=== PATIENT | male | born 1945 | race Caucasian/White ===

== ENCOUNTER → 2018-08-15 | Outpatient (CLI) | payer MEDICARE ==
--- NOTE | 2018-08-15 14:33 | CT ---
EXAMINATION TYPE: CT brain wo/w con DATE OF EXAM: 08/15/2018 COMPARISON: NONE HISTORY: Visual field defects CT DLP: [id number] mGycm Automated Exposure Control for Dose Reduction was Utilized. TECHNIQUE: CT scan of the head is performed with IV contrast.,CT scan of the head is performed withou t and with without and with IV Contrast, patient injected with 100 mL of Isovue 300. FINDINGS: There is encephalomalacia in the left occipital lobe. This correlates with the patient's provided history of visual deficits. Other scattered areas of hypoattenuation are seen within the sub cortical and periventricular white matter. Old lacunar injury seen of the right external capsule abut ting the lentiform nucleus that is CSF attenuated. Additional lacunar injury seen of the left caudate head. There is symmetric prominence of the peripheral sulci and ventricular system compatible with a ge-related volume loss. No suspicious extra-axial fluid collection is seen. Dystrophic calcifications of the left basal ganglia are noted. Noncontrast images show no acute intracranial hemorrhage or mid line shift. Postcontrast images show no suspicious enhancing intraparenchymal mass. The globes are intact. Lenses are symmetric. Extraocular muscles are also symmetric. No enlargement of the superior ophthalmic vei ns. No enhancing intracranial mass is identified. There is moderate mucosal thickening of the right m axillary sinus and minimal mucosal thickening of the ethmoid sinuses. Remaining paranasal sinuses and mastoid air cells are well aerated. Calvarium appears intact. IMPRESSION: 1. 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 2. Cerebral atrophy and mild burden nonspecific with air change, likely on the basis of chronic micro angiopathy. 3. Lacunar injuries of the right external capsule extending into the right lentiform nucleus and left caudate head.
== END | disposition home or self-care (01) ==
LOC: RADCTMAIN 12:27
PROVIDERS: ATTEND Ophthalmology
DX: I69.398 Other sequelae of cerebral infarction (principal); G93.89 Other specified disorders of brain; G31.9 Degenerative disease of nervous system, unspecified; Z88.2 Allergy status to sulfonamides
CPT/HCPCS: 82565; 84520; 70470; 36415; Q9967

== ENCOUNTER 2020-06-28 15:04 | Emergency (ER) | payer MEDICARE ==
[2020-06-28] MEDS ORDERED: ceFAZolin 1,000 MG VIAL (IM USE) IM STA ×2 (15:15→15:27)
[2020-06-28] MEDS ORDERED: DIPH,PERTUS(ACELL)TETVAC-LF 0.5 ML VIAL IM ONE (15:16)
[2020-06-28] MEDS ORDERED: LIDOCAINE 1% INJ 10MG/ML (20 ML MDV) SQ ONE (15:16)
[2020-06-28] MEDS ORDERED: traMADol 50 MG STARTER PACK 3 TAB BTL PO STA (15:17)
[2020-06-28 15:22] VITALS: RESP 18; TEMP 97.7
--- NOTE | 2020-06-28 15:57 | XR ---
EXAMINATION TYPE: XR hand complete LT DATE OF EXAM: 06/28/2020 CLINICAL HISTORY: Laceration injury with pain worse over second and third fingers. TECHNIQUE: Frontal, lateral and oblique images of the left hand are obtained. COMPARISON: None. FINDINGS: Osseous structures are demineralized. There is acute comminuted minimally displaced fractur e with adjacent soft tissue swelling and punctate densities possible soft tissue foreign body through the proximal to mid shaft ulnar and dorsal aspect of the second distal phalanx. No additional fractu re clearly seen. Mild to moderate narrowing throughout the PIP and DIP joints is present. Incidental metallic ring overlies the distal diaphysis fourth proximal phalanx. IMPRESSION: There is comminuted minimally displaced fracture involving the ulnar dorsal aspect proxi mal to mid diaphysis fourth distal phalanx with possible soft tissue foreign body.
[2020-06-28] MEDS ORDERED: BACITRACIN OINT 1 EACH PACKET TOPICAL ONE (16:52)
--- NOTE | 2020-06-28 17:12 | ED ---
Wound/Laceration HPI - General Chief Complaint: Wound/Laceration Stated Complaint: Hand Lac Time Seen by Provider: 06/28/20 15:12 Source: patient Mode of arrival: ambulatory Limitations: no limitations - History of Present Illness Initial Comments: 75yo male presenting today for cc of right hand lacerations. Patient states he cut the tips of digits 2 and 3 on his right hand using a circular saw. Patient states he missed and cut his fingers that this was not intentional. Patient states he has no decreased range of motion or sensation of the fingers he states he does have pain at the site of lacerations. Patient was able to control the bleeding with pressure presents emergency department for further evaluation. Patient is unsure of last tetanus. Patient has no additional complaints he denies any other areas of injury review systems negative upon arrival patient appears well and nontoxic in no acute distress. - Related Data Home Medications Medication Instructions Recorded Confirmed Aspirin [Adult Low Dose Aspirin EC] 81 mg PO Q2D 11/06/18 11/06/18 Dipyridamole-Aspirin 200-25 mg 1 each PO BID 11/06/18 11/06/18 [Aggrenox] Enalapril [Vasotec] 20 mg PO BID 11/06/18 11/06/18 Famotidine 20 mg PO BID PRN 11/06/18 11/06/18 Insulin Aspart Protam & Aspart 7 - 8 unit SQ TID PRN 11/06/18 11/06/18 [NovoLOG MIX 70-30 Flexpen] Insulin Glargine,Hum.rec.anlog 11 units SQ HS 11/06/18 11/06/18 [T[place]ora Solostar] Latanoprost/Pf [Latanoprost 0.005% 1 drop BOTH EYES HS 11/06/18 11/06/18 Eye Drop] Metoprolol Tartrate [Lopressor] 25 mg PO QAM 11/06/18 11/06/18 Nitroglycerin 0.4 mg SL DIRECTED PRN 11/06/18 11/06/18 Simvastatin [Zocor] 20 mg PO DAILY 11/06/18 11/06/18 Vit C/E/Zn/Coppr/Lutein/Zeaxan 1 each PO BID 11/06/18 11/06/18 [Preservision Areds 2 Softgel] amLODIPine [Norvasc] 5 mg PO BID 11/06/18 11/06/18 hydroCHLOROthiazide 25 mg PO QAM 11/06/18 11/06/18 metFORMIN HCL 1,000 mg PO BID 11/06/18 11/06/18 Previous Rx's Medication Instructions Recorded Cephalexin [Keflex] 500 mg PO Q6HR 7 Days #28 cap 06/28/20 Allergies Allergy/AdvReac Type Severity Reaction Status Date / Time Sulfa (Sulfonamide Allergy Rash/Hives Verified 06/28/20 15:18 Antibiotics) Review of Systems ROS Statement: Those systems with pertinent positive or pertinent negative responses have been documented in the HPI. ROS Other: All systems not noted in ROS Statement are negative. 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 Melamoma on back. Hard of hearing. Hx Pneumonia yrs ago. Last Myocardial Infarction Date:: 2009 History of Any Multi-Drug Resistant Organisms: None Reported Past Surgical History: Coronary Bypass/CABG Additional Past Surgical History / Comment(s): Nose surgery, broken foot surgery, melanoma removed from back. Past Anesthesia/Blood Transfusion Reactions: No Reported Reaction Past Psychological History: No Psychological Hx Reported Smoking Status: Never smoker Past Alcohol Use History: Occasional Past Drug Use History: None Reported - Past Family History Sister(s) Family Medical History: Cancer Brother(s) Family Medical History: Cancer General Exam - General Exam Comments Initial Comments: General: The patient is awake and alert, in no distress, and does not appear acutely ill. Eye: Pupils are equal, round and reactive to light, extra-ocular movements are intact. No nystagmus. There is normal conjunctiva bilaterally. No signs of icterus. Ears, nose, mouth and throat: There are moist mucous membranes and no oral lesions. Neck: The neck is supple, there is no tenderness or JVD. Cardiovascular: There is a regular rate and rhythm. No murmur, rub or gallop is appreciated. Respiratory: Lungs are clear to auscultation, respirations are non-labored, breath sounds are equal. No wheezes, stridor, rales, or rhonchi. Musculoskeletal: Normal ROM, no tenderness. Strength 5/5 at the MCP DIP and PIP joints with full range of motion at the joints. Sensation intact. Radial pulses equal bilaterally 2+. Apley refill less than 3 seconds sensation proximal distal to areas of injury Neurological: A&O x 3. CN II-XII intact, There are no obvious motor or sensory deficits. Coordination appears grossly intact. Speech is normal. Skin: Skin is warm and dry and no rashes. Very irregular lesions on the second and third digit on the radial aspect just distal to the DIP joint. the index finger has finger nail involvement both lacerations roughly 1 cm irregular with avulsions of skin significant swelling exposure of adipose no exposure of bone no bony fragments identified no obvious foreign body after exploration Psychiatric: Cooperative, appropriate mood & affect, normal judgment. Limitations: no limitations Course Vital Signs 06/28/20 06/28/20 15:18 17:25 Temperature 97.7 F Pulse Rate 51 L 50 L Respiratory 18 18 Rate Blood Pressure 177/96 173/83 O2 Sat by Pulse 97 98 Oximetry Procedures - Laceration Laceration #1 Consent Obtained: verbal consent Indication: laceration Site: lower extremity, other (finger 2nd right hand) Size (cm): 1 Description: avulsion, irregular Depth: simple, single layer Anesthetic Used: lidocaine 1% Anesthesia Technique: nerve block Amount (mls): 1 Pre-repair: wound explored, irrigated extensively, deep structures intact Type of Sutures: nylon Size of Sutures: 5-0 Number of Sutures: 3 Technique: simple, interrupted Patient Tolerated Procedure: well, no complications Laceration #2 Consent Obtained: verbal consent Indication: laceration Site: other (finger right hand 3rd) Size (cm): 1 Description: avulsion, irregular Anesthetic Used: lidocaine 1% Anesthesia Technique: nerve block Amount (mls): 1 Pre-repair: wound explored, irrigated extensively, deep structures intact Type of Sutures: nylon Size of Sutures: 5-0 Number of Sutures: 4 Technique: simple, interrupted Patient Tolerated Procedure: well, no complications Medical Decision Making - Medical Decision Making 76 mL presenting for second and third digit lacerations. X-ray revealed distal phalanx fractures of second third digits. Comminuted. Consistent with circular sort injury. Patient lacerations were repaired to the best of ability there is significant avulsion of skin as well as swelling. There is no exposure of bone patient tolerated procedure well there is extensive irrigation prior to closure (1L), she received cefazolin, tetanus was updated. Patient was discharged with Keflex and instruction to follow-up with orthopedic surgery at this time there is no evidence suggestive of tendon injury. Case was discussed with attending provider Dr. Garrett who was agreeable to care plan and discharge. Disposition Clinical Impression: Fracture of distal phalanx of index finger, Fracture of distal phalanx of middle finger, Open fracture, Laceration of index finger, Laceration of middle finger, Contact with powered saw as cause of accidental injury Disposition: HOME SELF-CARE Condition: Good Instructions (If sedation given, give patient instructions): Care For Your Stitches (ED), Laceration (ED) Additional Instructions: Please use medication as discussed. Please follow-up with orthopedic surgery in the next 2-3 days. Suture removal in 7-10 days. Please return to emergency room if the symptoms increase or worsen or for any other concerns. Prescriptions: Cephalexin [Keflex] 500 mg PO Q6HR 7 Days #28 cap Is patient prescribed a controlled substance at d/c from ED?: No Referrals: Juanito Lawton MD [Primary Care Provider] - 1-2 days Richy Mercado MD [STAFF PHYSICIAN] - 1-2 days Time of Disposition: 17:12
[2020-06-28 17:31] VITALS: BP 173/83; PULSE 50
[2020-06-29 14:04] LABS: Glucose,Whole Blood 104 mg/dL (75-99)
== END 2020-06-28 17:25 | disposition home or self-care (01) ==
LOC: EC 15:04
DX: S62.630B Displaced fracture of distal phalanx of right index finger, initial encounter for open fracture (principal); S62.632B Displaced fracture of distal phalanx of right middle finger, initial encounter for open fracture; I10 Essential (primary) hypertension; E11.9 Type 2 diabetes mellitus without complications; K21.9 Gastro-esophageal reflux disease without esophagitis; E78.5 Hyperlipidemia, unspecified; H57.9 Unspecified disorder of eye and adnexa; H91.90 Unspecified hearing loss, unspecified ear; I25.2 Old myocardial infarction; Z23 Encounter for immunization; Z79.4 Long term (current) use of insulin; Z79.82 Long term (current) use of aspirin; Z79.84 Long term (current) use of oral hypoglycemic drugs; Z79.899 Other long term (current) drug therapy; Z88.2 Allergy status to sulfonamides; Z86.73 Personal history of transient ischemic attack (TIA), and cerebral infarction without residual deficits; Z85.820 Personal history of malignant melanoma of skin; W31.2XXA Contact with powered woodworking and forming machines, initial encounter
CPT/HCPCS: 99283; 96365; 90471; 73130; 90715; 12001; J0690; J2001; 36415

== ENCOUNTER 2021-06-09 05:58 | Day surgery (SDC) | payer MEDICARE ==
[2021-06-07 16:10] VITALS: BMI 25.5
[2021-06-09] MEDS ORDERED: ALPRAZolam 0.5 MG TAB PO PRN (06:11)
[2021-06-09] MEDS ORDERED: HEPARIN SODIUM,PORCINE 10,000 UNIT in SODIUM CHLORIDE 0.9% 1,000 ML IRRIGATION PRN (06:11)
[2021-06-09] MEDS ORDERED: HEPARIN SODIUM,PORCINE 2,500 UNIT in SODIUM CHLORIDE 0.9% 250 ML IRRIGATION PRN (06:11)
[2021-06-09] MEDS ORDERED: NITROGLYCERIN SL TABS 0.4 MG TAB SUBLINGUAL PRN (06:11)
[2021-06-09] MEDS ORDERED: ALPRAZolam 0.25 MG TAB PO PRN (06:11)
[2021-06-09] MEDS ORDERED: ASPIRIN 325 MG TAB PO STA (06:11)
[2021-06-09] MEDS ORDERED: SODIUM CHLORIDE 0.9% 1,000 ML in EMPTY BAG 1 BAG IV ONE (06:11)
[2021-06-09 06:33] LABS: Glucose,Whole Blood 165 mg/dL (75-99)
[2021-06-09 06:46] LABS: Basophils % (A) 0 %; Eosinophils # (A) 0.2 k/uL (0-0.7); Eosinophils % (A) 2 %; HCT 37.1 % (39.0-53.0); HGB 12.6 gm/dL (13.0-17.5); Lymphocytes % (A) 22 %; MCH 33.4 pg (25.0-35.0); Mean Platelet Volume 7.6; Monocytes # (A) 0.7 k/uL (0-1.0); Monocytes % (A) 7 %; Neutrophils # (A) 6.2 k/uL (1.3-7.7); Neutrophils % (A) 67 %; Platelet Count 232 k/uL (150-450); RBC 3.79 m/uL (4.30-5.90); RDW 12.5 % (11.5-15.5); WBC 9.3 k/uL (3.8-10.6)
[2021-06-09 06:55] LABS: Calcium 9.3 mg/dL (8.4-10.2); Potassium 4.6 mmol/L (3.5-5.1)
[2021-06-09 07:06] VITALS: RESP 16; TEMP 98.5
[2021-06-09] MEDS ORDERED: LIDOCAINE 1% INJ 10MG/ML (20 ML MDV) ONE (07:19)
[2021-06-09] MEDS ORDERED: HEPARIN SODIUM 1,000 UN/ML (10ML VL) ONE (07:26)
[2021-06-09] MEDS ORDERED: fentaNYL (PF) 50 MCG/ML 2 ML AMP ONE (07:26)
[2021-06-09] MEDS ORDERED: fentaNYL (PF) 50 MCG/ML 2 ML AMP IV ONE (07:42)
[2021-06-09] MEDS ORDERED: LIDOCAINE 1% INJ 10MG/ML (20 ML MDV) SQ ONE (07:46)
[2021-06-09] MEDS ORDERED: IOPAMIDOL-370 125ML BTL INJ ONE (08:07)
[2021-06-09] MEDS ORDERED: RX INFO: IV CONTRAST WAS GIVEN 1 EACH MISC MISCELLANE PRN (08:49)
[2021-06-09] MEDS ORDERED: INSULIN ASPART PROTAM SQ PRN (08:50)
[2021-06-09] MEDS ORDERED: ASPART SQ PRN (08:50)
[2021-06-09] MEDS ORDERED: [UNRECOGNIZED DRUG - OTHER] SQ PRN (08:50)
[2021-06-09] MEDS ORDERED: NON FORMULARY DRUG (Simvastatin 20 MG Tab) PO SCH (09:00)
[2021-06-09] MEDS ORDERED: DIPYRIDAMOLE-ASPIRIN 200-25 MG 1 EACH CPMP.12HR PO SCH (09:00)
[2021-06-09] MEDS ORDERED: NON FORMULARY DRUG (Aspirin [Adult Low Dose Aspirin Ec] 81 MG Tablet.Dr) PO SCH (09:00)
[2021-06-09] MEDS ORDERED: METOPROLOL TARTRATE 25 MG TAB PO SCH (09:00)
[2021-06-09] MEDS ORDERED: amLODIPine 5 MG TAB PO SCH (09:00)
[2021-06-09] MEDS ORDERED: NON FORMULARY DRUG (Enalapril 20 MG Tab) PO SCH (09:00)
[2021-06-09] MEDS ORDERED: FAMOTIDINE 20 MG TAB PO SCH (09:00)
[2021-06-09] MEDS ORDERED: hydroCHLOROthiazide 25 MG TAB PO SCH (09:00)
[2021-06-09] MEDS ORDERED: SODIUM CHLORIDE 0.9% 1,000 ML IV SCH (09:00)
--- NOTE | 2021-06-09 13:17 | CC ---
CARDIAC CATHETERIZATION REPORT Mr. Feliciano is a 75-year-old male with known history of coronary artery disease status post coronary artery bypass grafting, history of hypertension, hyperlipidemia, and diabetes, who has been complaining of progressive fatigue, underwent a myocardial perfusion imaging that revealed anterolateral wall reversible defect. In view of that, recommendation regarding cardiac catheterization, the procedure as well as the risks and the complications were discussed with the patient who is in full understanding and agreement. PROCEDURE: Patient was brought to the laborer cutting tool in a fasting state after receiving fentanyl and Benadryl and achieving moderate conscious sedated state. Using Xylocaine anesthesia and Seldinger technique a 6-Sammarinese sheath was introduced in the right femoral artery. Selective right and left coronary angiography performed using 6-Sammarinese, 4 bend right and left Laquita catheter. Multiple views of the coronary arteries including hemiaxial views were obtained. Following that, the 6-Sammarinese right Laquita was used to cannulate the WEAVER to LAD and images of the grafts were obtained. Following that, 6-Sammarinese tight pigtail catheter was advanced in the ascending aorta and [facility] view of the ascending aorta was performed. Following that, a 6-Sammarinese size 3.5 Laquita catheter was used to cannulate the saphenous vein graft to the right coronary artery and images of the grafts were obtained. The 6-Sammarinese LCB catheter was used to cannulate the saphenous vein graft to the obtuse marginal branch and saphenous vein graft to the diag and subsequently multipurpose B2 was used to cannulate the saphenous vein graft to the diagonal 1 and 2. Images of the grafts were obtained. Following that the catheter and sheaths were removed. Hemostasis was obtained with deployment of an Angio-Seal. There was no immediate complication. Patient was returned to his room in stable condition. Of note, the right Laquita was used to cross the aortic valve and left ventricular end- diastolic pressure was calculated. FINDINGS: LEFT MAIN: This vessel has a 99% stenosis distally. LEFT ANTERIOR DESCENDING ARTERY: This vessel is totally occluded in the proximal segment with no antegrade flow. LEFT CIRCUMFLEX: This vessel is totally occluded proximally with no significant antegrade flow. RIGHT CORONARY ARTERY: Right coronary artery, this vessel is totally occluded in the proximal segment with no significant antegrade flow. WEAVER to the LAD: The distal anastomotic site is patent. The flow into the LAD is brisk. There is a 99% stenosis in the LAD at the apex. There is retrograde flow filling at diagonal branch. Saphenous vein graft to the obtuse marginal branch: The proximal and distal anastomotic sites are patent. There is brisk flow into the obtuse marginal branch. There is retrograde flow through the AV groove left circumflex feeding to the proximal obtuse marginal branch. There is diffuse disease in the AV groove left circumflex. Saphenous vein graft to the right coronary artery: The proximal distal anastomotic sites are patent. The flow into the RCA is brisk. The PLV has diffuse intimal disease. The rest of the vessel has no high-grade stenosis. Saphenous vein graft to the first diagonal branch: This graft is totally occluded proximally. Saphenous vein graft to the second diagonal branch: This graft is patent. There is a 50% stenosis in the body of the graft, 50 to 60%. The diagonal branch is small in caliber. AORTOGRAM: Aortogram was performed in the [facility] view and revealed a normal appearance of the ascending aorta with no significant aortic regurgitation. LEFT VENTRICULOGRAM: Was not performed. HEMODYNAMICS: There was no gradient across the aortic valve. The left ventricle end-diastolic pressure was 10-14 mmHg. CONCLUSION: 1. Severe triple-vessel coronary artery disease. 2. Patent WEAVER to LAD. 3. Patent saphenous vein graft to the RCA. 4. Patent saphenous vein graft to the obtuse marginal branch. 5. Occluded saphenous vein graft to the diagonal branch 1. 6. Occluded saphenous vein graft to the diagonal branch 2 with moderate disease in the body of the graft and small distal vessel. 7. Normal appearance of the ascending aorta. RECOMMENDATIONS: In view of findings and anatomy, recommend continued medical therapy with aggressive coronary risk modifications that have been initiated. Those findings and recommendations were discussed with the patient and his family and they are in full understanding and agreement. Duration of sedation is 48 minutes. MMODL / IJN: [id number] /
[2021-06-09 17:54] VITALS: BP 146/72; PULSE 52
[2021-06-09] MEDS ORDERED: NON FORMULARY DRUG (Latanoprost/Pf [Latanoprost 0.005% Eye Drop] 7.5 ML Drops) BOTH EYES SCH (21:00)
[2021-06-09] MEDS ORDERED: NON FORMULARY DRUG (Insulin Glargine,Hum.Rec.Anlog [Toujeo Solostar] 300 UNIT/ML Insuln.Pe SQ SCH (21:00)
== END 2021-06-09 16:02 | disposition home or self-care (01) ==
LOC: CATHCVL 05:58
PROVIDERS: ATTEND Internal Medicine Interventional Cardiology
DX: I25.10 Atherosclerotic heart disease of native coronary artery without angina pectoris (principal); I25.82 Chronic total occlusion of coronary artery; I25.810 Atherosclerosis of coronary artery bypass graft(s) without angina pectoris; E78.00 Pure hypercholesterolemia, unspecified; E11.9 Type 2 diabetes mellitus without complications; I12.9 Hypertensive chronic kidney disease with stage 1 through stage 4 chronic kidney disease, or unspecified chronic kidney disease; E11.22 Type 2 diabetes mellitus with diabetic chronic kidney disease; N18.9 Chronic kidney disease, unspecified; E78.2 Mixed hyperlipidemia; Z98.890 Other specified postprocedural states; H26.9 Unspecified cataract; Z86.73 Personal history of transient ischemic attack (TIA), and cerebral infarction without residual deficits; Z87.891 Personal history of nicotine dependence; Z79.899 Other long term (current) drug therapy; Z79.02 Long term (current) use of antithrombotics/antiplatelets; Z79.82 Long term (current) use of aspirin; Z79.4 Long term (current) use of insulin
CPT/HCPCS: 93459; 93567; 80048; 85025; C1769 ×2; C1760; C1894; J2001; J3010; Q9967

== ENCOUNTER 2022-01-17 08:30 | Day surgery (SDC) | payer MEDICARE ==
[2022-01-15 15:13] VITALS: BMI 25.5
[~2022-01-17 08:30] MED LIST: LACTATED RINGERS 1,000 ML IV SCH; LIDOCAINE 1% (10MG/ML) FOR IV START INTRADERMA PRN; MOXIFLOXACIN HCL 0.5% DROPS 3 ML BTL OP PRN; TETRACAINE 0.5% OPHTH (PF) DROPS 4 ML BTL OP PRN; TIMOLOL 0.5% OPHTH DROPS 5 ML BTL OP PRN
[2022-01-17] MEDS: CYCLOPENTOLATE 1% OPHTH SOLN 2 ML BTL OP PRN ×3 (09:55→10:07)
[2022-01-17] MEDS: PHENYLEPHRINE 2.5% OPHTH DRP 2ML OP PRN ×3 (09:58→10:10)
[2022-01-17 10:03] VITALS: TEMP 97
[2022-01-17 10:18] LABS: Glucose,Whole Blood 209 mg/dL (75-99)
[2022-01-17] MEDS ORDERED: fentaNYL (PF) 50 MCG/ML 2 ML AMP ONE (10:26)
[2022-01-17] MEDS ORDERED: MIDAZOLAM 2 MG/2 ML VIAL ONE (10:26)
[2022-01-17] MEDS ORDERED: BALANCED SALT IRRIG SOLN COMB2 15 ML IRRIG.SOLN INTRAOCULA ONE (10:32)
[2022-01-17] MEDS ORDERED: TRYPAN BLUE 0.06% SYRINGE 0.5 ML SYRINGE INTRAOCULA ONE (10:33)
[2022-01-17] MEDS ORDERED: DUOVISC KIT (GREEN BOX) INTRAOCULA ONE (10:33)
[2022-01-17] MEDS ORDERED: LIDOCAINE 1% (PF) 10MG/ML VIAL MISCELLANE ONE (10:33)
[2022-01-17] MEDS ORDERED: EPINEPHrine (PF) 0.3 ML in BALANCED SALT IRRIG SOLN COMB2 500 ML IRRIGATION ONE (10:34)
--- NOTE | 2022-01-17 11:11 | P.OP ---
Date of Procedure: 01/17/22 Preoperative Diagnosis: NS & CS & POAG ,moderate Postoperative Diagnosis: same Procedure(s) Performed: PIOL & goniotomy OS Implants: MX60E 21.50 Anesthesia: MAC Surgeon: Silas Stevens Pathology: none sent Condition: stable Disposition: same day Indications for Procedure: blurry vision and glaucoma control Operative Findings: no complications
[2022-01-17 11:32] VITALS: BP 179/76; PULSE 50; RESP 20
--- NOTE | 2022-01-18 11:31 | OP ---
OPERATIVE REPORT DATE OF SERVICE: January 17, 2022. PROCEDURES: Phacoemulsification of cataract and intraocular lens implant of the left eye with goniotomy. PREOPERATIVE DIAGNOSES: Nuclear sclerosis, cortical sclerosis and primary open-angle glaucoma, moderate stage. POSTOPERATIVE DIAGNOSES: Nuclear sclerosis, cortical sclerosis and primary open-angle glaucoma, moderate stage. SURGEON: Dr. Silas Stevens. ANESTHESIA: Topical. ESTIMATED BLOOD LOSS: Less than 5 mL. SPECIMEN TAKEN: None. NARRATIVE: After obtaining the appropriate consent, the patient was brought to the operating room. There he was placed under cardiac monitoring, prepped and draped in the usual sterile manner. He was approached from his left temporal side and at the 5 o'clock position an MVR blade was used to create a paracentesis port. Through this opening 1% Xylocaine MPF 50-50 mix with balanced salt solution was injected into the anterior chamber. This was followed by stabilization of the anterior chamber with Viscoat. At the 3 o'clock position, a 2.5 mm keratome was used to create a self-sealing corneal flap incision. The patient was then asked to rotate his head approximately 45 degrees to his right and Gonioprism was placed on the patient's cornea. The trabecular meshwork was easily identified. Using an inside-out technique, a [place] dual blade, goniotomy knife was passed across the anterior chamber and approximately 5 hours of the trabecular meshwork on the nasal side of the eye was removed for the pain. The patient was then asked to return to the normal supine position. A cystotome was introduced to begin a continuous tear capsulorrhexis which was then completed using the Utrata forceps. Hydrodissection and hydrodelineation of the lens were accomplished with balanced salt solution. Phacoemulsification of the lens utilizing phaco chop was accomplished in 27.58 seconds at 29.9% power. Additional Xylocaine MPF was instilled into the anterior chamber. This was followed by irrigation and aspiration of the remaining cortex along with careful polishing of the posterior capsule in the capsule vacuum mode. Provisc was then used to stabilize the capsular bag and a Bausch and Lomb MX 60E 21.5 diopter posterior chamber intraocular lens was then inserted into the capsular bag without difficulty. The remaining viscoelastic was removed under irrigation and aspiration in and around the intraocular lens and the eye was brought to slightly higher than normal intraocular pressure once confirmation of the incisions were considered watertight. He then received 2 drops of 0.5% timolol followed by 2 drops of moxifloxacin. He was then lightly patched and shielded in the usual manner. There were no complications in the procedure. He tolerated the procedure well and was returned to outpatient recovery in good condition. MMODL / CONNERN: [id number] /
== END 2022-01-17 11:41 | disposition home or self-care (01) ==
LOC: OR 08:30
PROVIDERS: ATTEND Ophthalmology
DX: E11.36 Type 2 diabetes mellitus with diabetic cataract (principal); H25.13 Age-related nuclear cataract, bilateral; H40.1132 Primary open-angle glaucoma, bilateral, moderate stage; H43.822 Vitreomacular adhesion, left eye; H35.372 Puckering of macula, left eye; H53.40 Unspecified visual field defects; H47.393 Other disorders of optic disc, bilateral; E11.3292 Type 2 diabetes mellitus with mild nonproliferative diabetic retinopathy without macular edema, left eye; H52.13 Myopia, bilateral; H52.4 Presbyopia; H00.023 Hordeolum internum right eye, unspecified eyelid; H00.026 Hordeolum internum left eye, unspecified eyelid; I11.9 Hypertensive heart disease without heart failure; E78.5 Hyperlipidemia, unspecified; K21.9 Gastro-esophageal reflux disease without esophagitis; Z95.1 Presence of aortocoronary bypass graft; Z97.2 Presence of dental prosthetic device (complete) (partial); Z98.890 Other specified postprocedural states; Z86.73 Personal history of transient ischemic attack (TIA), and cerebral infarction without residual deficits; Z83.518 Family history of other specified eye disorder; Z79.4 Long term (current) use of insulin; Z79.84 Long term (current) use of oral hypoglycemic drugs; Z79.82 Long term (current) use of aspirin; Z79.899 Other long term (current) drug therapy; Z88.1 Allergy status to other antibiotic agents; Z88.2 Allergy status to sulfonamides
CPT/HCPCS: 66984; 65820; C1780; J2250; J0171; J3010; J2001

== ENCOUNTER 2022-09-19 06:42 | Day surgery (SDC) | payer MEDICARE ==
[2022-09-14 15:42] VITALS: BMI 25.0
[~2022-09-19 06:42] MED LIST changes: -LACTATED RINGERS 1,000 ML IV SCH
[2022-09-19] MEDS ORDERED: fentaNYL (PF) 50 MCG/ML 2 ML AMP IV PRN (07:00)
[2022-09-19] MEDS: CYCLOPENTOLATE 1% OPHTH SOLN 2 ML BTL OP PRN ×3 (07:22→07:37)
[2022-09-19] MEDS: PHENYLEPHRINE 2.5% OPHTH DRP 2ML OP PRN ×3 (07:25→07:40)
[2022-09-19 07:41] LABS: Glucose,Whole Blood 162 mg/dL (70-110)
[2022-09-19] MEDS: LACTATED RINGERS 1,000 ML IV SCH ×2 (07:52→07:54)
[2022-09-19 07:56] VITALS: RESP 16; TEMP 98.1
[2022-09-19] MEDS ORDERED: MIDAZOLAM 2 MG/2 ML VIAL ONE (08:05)
[2022-09-19] MEDS ORDERED: fentaNYL (PF) 50 MCG/ML 2 ML AMP ONE (08:05)
[2022-09-19] MEDS ORDERED: EPINEPHrine (PF) 0.3 ML in BALANCED SALT IRRIG SOLN COMB2 500 ML IRRIGATION ONE (08:19)
[2022-09-19] MEDS ORDERED: BALANCED SALT IRRIG SOLN COMB2 15 ML IRRIG.SOLN IRRIGATION ONE (08:20)
[2022-09-19] MEDS ORDERED: CHONDROITIN-SOD HYALURONATE 1 EACH SYRINGE (0.75 ML) INTRAOCULA ONE (08:20)
[2022-09-19] MEDS ORDERED: LIDOCAINE 1% (PF) 10MG/ML VIAL MISCELLANE ONE (08:21)
--- NOTE | 2022-09-19 08:37 | P.OP ---
Date of Procedure: 09/19/22 Preoperative Diagnosis: NS & CS & POAG mod Postoperative Diagnosis: same Procedure(s) Performed: PIOL & goniotomy OD Implants: MX60E 21.00 Anesthesia: MAC Surgeon: Silas Stevens Pathology: none sent Condition: stable Disposition: same day Indications for Procedure: blurry vision and glaucoma Operative Findings: no complications
[2022-09-19 08:52] LABS: Glucose,Whole Blood 200 mg/dL (70-110)
[2022-09-19 09:09] VITALS: BP 170/72; PULSE 44
--- NOTE | 2022-09-20 04:25 | OP ---
OPERATIVE REPORT PROCEDURES: Phacoemulsification of cataract and intraocular lens implant of the right eye with goniotomy of the right eye. PREOPERATIVE DIAGNOSES: Nuclear sclerosis; cortical sclerosis; and primary open-angle glaucoma, moderate stage. ANESTHESIA: Topical. ESTIMATED BLOOD LOSS: Less than 5 mL. SPECIMEN TAKEN: None. NARRATIVE: After obtaining the appropriate consent, the patient was brought to the operating room. There, he was placed under cardiac monitoring, prepped and draped in the usual sterile manner. He was approached from his right temporal side, and at the 11 o'clock position, an MVR blade was used to create a paracentesis port. Through this opening, 1% Xylocaine MPF 50:50 mix with balanced salt solution was injected into the anterior chamber. This was followed by stabilization of the anterior chamber with Viscoat. At the 9 o'clock position, a 2.5 mm keratome was used to create a self-sealing corneal flap incision. The patient was then asked to rotate his head approximately 45 degrees to his left, and a gonioprism was placed on the patient's eye. A Bright [place] goniotomy blade was advanced across the anterior chamber of the eye, and using a brock and meet method, 4-1/2 clock hours of trabecular meshwork was removed without difficulty. A moderate amount of bleeding was identified as would be expected at this point in time. The K[place] dual blade knife was removed from the anterior chamber. The patient was then asked to return to the normal supine position. A cystotome was then introduced to begin a continuous tear capsulorrhexis, which was completed using the Utrata forceps. Hydrodissection and hydrodelineation of the lens were accomplished with balanced salt solution. Phacoemulsification of the lens utilizing phaco chop was accomplished in 3.45 seconds at 20% power. Additional Xylocaine MPF was instilled into the anterior chamber. This was followed by removal of the remaining cortical material under irrigation and aspiration as well as careful polishing of the posterior capsule in the capsule vacuum mode. Additional Viscoat was then used to stabilize the capsular bag, and a Bausch and Lomb MX60E 21.0 diopter posterior chamber intraocular lens was then inserted into the capsular bag without difficulty. The remaining viscoelastic was removed from in and around the intraocular lens as well as the anterior chamber. The eye was brought to slightly above normal intraocular pressure through the paracentesis port with balanced salt solution, and the wounds were confirmed watertight. He then received 2 drops of 0.5% timolol followed by 2 drops of moxifloxacin, and he was then lightly patched and shielded in the usual manner. The patient was then placed in a 45- degree recumbent supine position and was returned to recovery in good condition. MMKENDALL / VIKRAM: [id number] /
== END 2022-09-19 09:36 | disposition home or self-care (01) ==
LOC: OR 06:42
PROVIDERS: ATTEND Ophthalmology
DX: H25.11 Age-related nuclear cataract, right eye (principal); H40.1132 Primary open-angle glaucoma, bilateral, moderate stage; I25.2 Old myocardial infarction; I10 Essential (primary) hypertension; E78.5 Hyperlipidemia, unspecified; K21.9 Gastro-esophageal reflux disease without esophagitis; E11.9 Type 2 diabetes mellitus without complications; Z86.73 Personal history of transient ischemic attack (TIA), and cerebral infarction without residual deficits; Z88.2 Allergy status to sulfonamides; Z79.52 Long term (current) use of systemic steroids; Z79.899 Other long term (current) drug therapy; Z98.890 Other specified postprocedural states
CPT/HCPCS: 66984; C1780; J2250; J0171; J3010; J2001

== ENCOUNTER → 2022-12-11 | Outpatient (CLI) | payer MEDICARE ==
--- NOTE | 2022-12-11 13:15 | US ---
EXAMINATION TYPE: US kidneys/renal and bladder DATE OF EXAM: 12/11/2022 COMPARISON: NONE CLINICAL HISTORY: N18.32 CHRONIC KIDNEY DISEASE, STAGE 3B. Abnormal renal labs EXAM MEASUREMENTS: Right Kidney: 10.0 x 5.2 x 4.8 cm Left Kidney: 12.1 x 4.9 x 4.0 cm Right Kidney: Cortical thinning, no evidence of hydro Left Kidney: Cortical thinning, no evidence of hydro Bladder: wnl Bilateral Jets seen: No There is no evidence for hydronephrosis at this point in time. Bilateral cortical thinning identified . No nephrolithiasis is seen. No masses are identified. The urinary bladder is anechoic. IMPRESSION: 1. No hydronephrosis or nephrolithiasis. 2. Findings suggestive of bilateral chronic medical renal disease.
== END | disposition home or self-care (01) ==
LOC: RADUSWWP 12:20
PROVIDERS: ATTEND Internal Medicine
DX: N18.32 Chronic kidney disease, stage 3b (principal)
CPT/HCPCS: 76770